=== PATIENT | male | born 1950 | race Caucasian/White ===

== ENCOUNTER 2022-12-07 17:23 | Emergency (ER) | payer OTHER, BC ==
[~2022-12-07] VITALS: Ht 175.3 cm; Wt 84.4 kg
[2022-12-07 17:37] VITALS: BP 124/80; PULSE 99; RESP 19; TEMP 97.4; O2SAT 97
[2022-12-07 17:47] VITALS: O2SAT 99
--- NOTE | 2022-12-07 17:51 | NUR ---
PT C/O SOB X1 WEEK, WORSE WITH EXERTION PMH: HTN, CHOLESTEROL, AFIB
--- NOTE | 2022-12-07 18:06 | NUR ---
72 Y/0 M PATIENT PRESENTS TO ED WITH SOB PT STATES HE FEELS LIKE HE HAS A LOT OF FLUID ON HIS CHEST. PT TENDS TO HAVE SOB UP EXCERTION PT HAS A HISTORY OF AFIB. PT ALSO STATES HE FEELS BLOATED BUT DENIES N/V/D; SKIN IS PINK/WARM/DIPHORETIC; AAOX4 WITH EVEN AND STEADY GAIT; LUNGS CLEAR BL; HR EVEN AND REGULAR; PT DENIES ANY FEVER, CP, OR COUGH AT THIS TIME; PATIENT STATES PAIN OF 0/10 AT THIS TIME; VSS; PATIENT POSITIONED FOR COMFORT; HOB ELEVATED; BEDRAILS UP X2; CALL LIGHT WITH IN REACH. BED DOWN. PT PLACED ON MONITOR. ER MD MADE AWARE OF PT STATUS. PTS URINE COLLECTED AND SENT TO LAB. PMHX HIGH CHOLESTEROL AFIB BACK SURGERY ( SPINE STIMULATOR ) ALLERGIES NKA
[2022-12-07] MEDS ORDERED: DILT-135 (18:14)
[2022-12-07] MEDS ORDERED: APIX5TAB PO (18:14)
[2022-12-07] MEDS ORDERED: LISI20TA29 PO (18:18)
[2022-12-07] MEDS ORDERED: METO50TA20 PO (18:18)
[2022-12-07] MEDS ORDERED: METO-624 PO (18:18)
[2022-12-07] MEDS ORDERED: EZET-77 PO (18:22)
[2022-12-07] MEDS ORDERED: TAMS0.4C96 PO (18:24)
[2022-12-07] MEDS ORDERED: FURO-570 PO (18:24)
[2022-12-07] MEDS ORDERED: CLON-527 TD (18:25)
[2022-12-07] MEDS ORDERED: ONDA-188 PO (18:26)
[2022-12-07] MEDS ORDERED: HYDR-5191 PO (18:29)
[2022-12-07] MEDS ORDERED: CARI350T34 PO (18:30)
--- NOTE | 2022-12-07 19:00 | NUR ---
[facility] in ED - 12/07/22 at 1933 by [id number] pt has been placed on monitor, blood work and urine sent to lab. Pts med rec entered into system. pt resting comfortably.
--- NOTE | 2022-12-07 19:00 | NUR ---
pt has been placed on monitor, blood work and urine sent to lab. Pts med rec entered into system. pt resting comfortably.
[2022-12-07] MEDS ORDERED: HYDROcodone/APAP 10/325 MG 1 TAB TAB PO ONE (19:10)
[2022-12-07] MEDS ORDERED: carisoprodoL 350 MG TAB ONE (19:15)
[2022-12-07] MEDS ORDERED: carisoprodoL 350 MG TAB PO ONE (19:15)
[2022-12-07 19:25] LABS: BASOPHILS % (AUTO) 0.6 % (0.0-2.0); EOSINOPHILS # (AUTO) 0.1 K/uL (0-0.4); EOSINOPHILS % (AUTO) 1.4 % (0.0-4.0); HEMATOCRIT 44.5 % (36-52); HEMOGLOBIN 14.7 g/dL (12.0-18.0); LYMPHOCYTES # (AUTO) 0.8 K/uL (2.0-11.5); LYMPHOCYTES % (AUTO) 11.1 % (20.5-51.1); MEAN CORPUSCULAR HEMOGLOBIN 33 pg (27-31); MEAN CORPUSCULAR HGB CONC 33 g/dL (33-37); MEAN CORPUSCULAR VOLUME 100.2 fL (80-94); MONOCYTES # (AUTO) 0.9 K/uL (0.8-1.0); MONOCYTES % (AUTO) 13.3 % (1.7-9.3); NEUTROPHILS % (AUTO) 73.6 % (42.2-75.2); PLATELET COUNT (AUTO) 224 K/uL (140-450); RED BLOOD CELL COUNT(AUTO) 4.45 MIL/uL (4.20-6.10); RED CELL DISTRIBUTION WIDTH 13.8 % (11.6-13.7); WHITE BLOOD COUNT (AUTO) 6.8 K/uL (4.8-10.8)
--- NOTE | 2022-12-07 19:26 | NUR ---
[facility] in [facility] - 12/07/22 at 1933 by [email or web address] Report given and Released care to GHULAM Mckeon.
--- NOTE | 2022-12-07 19:26 | NUR ---
pt has been medicated per providers orders. pt has been sent to ct
--- NOTE | 2022-12-07 19:26 | NUR ---
[facility] in ED - 12/07/22 at 1933 by [id number] pt has been medicated per providers orders. pt has been sent to ct
--- NOTE | 2022-12-07 19:30 | NUR ---
Report given and Released care to GHULAM Mckeon.1
--- NOTE | 2022-12-07 19:30 | NUR ---
reports received from lissa douglas
[2022-12-07 19:43] LABS: ALBUMIN 3.9 g/dL (3.4-5.0); ANION GAP 12.6 (8-16); ASPARTATE AMINOTRANSFERASE 34 U/L (15-37); CARBON DIOXIDE 28.3 mmol/L (21-32); CHLORIDE 101 mmol/L (98-107); GLUCOSE 88 mg/dL (74-106); POTASSIUM 3.9 mmol/L (3.5-5.1); SODIUM SERUM 138 mmol/L (136-145); TOTAL BILIRUBIN 0.5 mg/dL (0.0-1.0); UREA NITROGEN, BLOOD 26 mg/dL (7-18)
--- NOTE | 2022-12-07 19:43 | NUR ---
pt resting on bed. a/ox4. not in distress. chest rise and fall symmetrical. on monitor. oriented to call light and within reach. bed locked to lowest position. siderails x2 for safety. placed on moderate high back rest. with o2 via nc @ 2lpm.
[2022-12-07 21:40] VITALS: BP 124/80; PULSE 86; RESP 24; TEMP 97.4; O2SAT 96
--- NOTE | 2022-12-07 21:40 | NUR ---
Patient discharged with v/s stable. Written and verbal after care instructions given and explained. Patient verbalized understanding. Ambulatory with steady gait. All questions addressed prior to discharge. Advised to follow up with PMD.
== END 2022-12-07 21:40 | disposition home or self-care (01) ==
LOC: MED 17:23
DX: R06.02 Shortness of breath (principal); R14.0 Abdominal distension (gaseous); R06.00 Dyspnea, unspecified; I10 Essential (primary) hypertension; Z79.899 Other long term (current) drug therapy
CPT/HCPCS: 36415; 71045; 74176; 80053; 83880; 84484; 85025; 93005; 99285; Q0092